=== PATIENT | female | born 1985 | race Caucasian/White ===

== ENCOUNTER 2020-04-22 12:48 | Outpatient (CLI) | payer BC, SELFPAY ==
[2020-04-22 14:26] LABS: HIV 1/2 Ab P24 Ag 9.67; Hepatitis B Surface Antigen Negative (Negative)
[2020-04-22 14:43] LABS: Hepatitis C Virus Antibody Negative (Negative)
[2020-04-22 17:15] LABS: HIV 1/2 Ab P24 Ag Result Reactive (Negative)
[2020-04-22 22:34] LABS: HIVc Retest 1 9.62; HIVc Retest 2 9.24
[2020-04-25 07:18] LABS: Rapid Plasma Reagin Non-Reactive (NonReactive)
[2020-04-25 16:02] LABS: HIV 1 2 Ag Ab 4th Gen w Rflxs Non-reactive (Non-reactive)
[2020-04-27 16:10] LABS: HSV 1 IgM Screen Negative (Negative); HSV 2 IgM Screen Negative (Negative)
== END 2020-04-22 12:49 | disposition home or self-care (01) ==
PROVIDERS: PCP Internal Medicine; Visit Provider Student in an Organized Health Care Education/Training Program
DX: Z11.3 Encounter for screening for infections with a predominantly sexual mode of transmission (principal)
CPT/HCPCS: 36415; 86592; 86695; 86696; 86703; 86803; 87340; 87389; G0432

== ENCOUNTER 2025-01-13 11:45 | Outpatient (CLI) | payer OTHER, SELFPAY ==
--- OUTSIDE RECORDS SUMMARY | 2023-08-02 03:47 | XMS_ITS | Continuity of Care Document ---
Author Organization [facility] Address [address] [address] Phone Care Team Providers Care Hide Splitter Name Role Phone Wade Simmons MD Unavailable Unavailable Allergies, Adverse Reactions, Alerts Substance Reaction Status Criticality PENICILLIN Active No Information Medications Medication Instructions Dosage Effective Dates (start - stop) Status Comments azelastine 137 mcg (0.1 %) nasal spray aerosol spray 2 spray by intranasal route 2 times every day in each nostril as needed for runny nose, nasal congestion - Active Procedures Procedure Date Perc Test Intradermal Test New (Level 4) OFFICE/OUTPATIENT VISIT Ap NICKER Registration Fee Advance Directives Directive Yes / No Effective Date File Name No Information Encounters Encounter Description Practice Location Reason(s) For Visit Diagnoses Date Provider Providers Copied on Encounter [facility], [address] [place] [address], [id number], tel:[phone] [facility] No Information Troy Olvera. [address], [place], [address], [place]. tel:[phone] Referring Provider: Wade Simmons, [address], [place], [address]. tel:[phone] New (Level 4) OFFICE/OUTPA TIENT VISIT [facility], [address] [place] [address], [id number], tel:[phone] [facility] [place] complaint[place] Diarrhea, unspecifiedAbnor mal weight lossDrug reaction, initial encounterAllergy status to penicillinOther allergic rhinitis 3 Troy Olvera. [address], [place], [address], [place]. tel:[phone] Referring Provider: Wade Simmons, [address], [place], [address]. tel:[phone] [facility], [address] [place] [address], [id number], tel:[phone] [facility] [place] Information [facility] Prov. . Referring Provider: Wade Simmons, [address], [place], [address]. tel:[phone] Family History Family Member Type Diagnosis Age At Onset Problem No family history of Thyroid disorder Father Problem rheumatoid arthritis Problem No family history of Immunod eficiency disorder Problem No family history of Eosinop hilic esophagitis Problem No family history of Lupus e rythematosus Payers Payer name Insurance type Covered green party ID Authoriza tion(s) [facility] [id number] Social History Type Description Quantity Date Captured Comments Alcohol Use Details Unknown Caffeine Use Details Unknown Tobacco Use Status No Information Smoking Status No Information Sex Female Chief Complaint And Reason For Visit No Information Reason For Referral Reason For Referral No Information History Of Present Illness Encounter Date Complaint History Of Prese nt Illness allergy symptoms RhinitisThe inga zaragoza has a history of perennial rhinitis with seasonal worsening in spring/fall. The symptoms include nasal congestion, rhinorrhea (ant), ear congestion (L>R), and occ sneezing w/ ocular pruritus and tearing. Currently, the patient is not on any medications. Previously they have tried Flonase PRN and levocetirizine (xyzal) 5 mg daily PRN. She worries about senior living side effects of nasal sprays affecting her bone health. The patient does have a history of sinus infections, about once per year requiring antibiotics..She has never had allergy testing in the past.She has a history of BPPV x1 year. She has used the Roge maneuver to improve these symptoms.She reports she is having issues with food. She says she has unintentionally lost 15% of her weight. She reports having to go to the bathroom within 15 to 30 minutes of eating due to diarrhea. She reports this has been going on for the last 2-3 months (though intermittently an issue over the last 5 years - more manageable). She tried dietary changes in the past (vegetarian or vegan about 2-3 years ago) which she found helpful for her sciatica, but felt it was nutritionally incomplete. She worries lettuce is a trigger for her symptoms, though they occur even without exposure to this food. She does not have associated hives, vomiting, or dyspnea.She reports no history of asthma and has never been on an inhaler.PMH: depression, BPPV, sciaticaPSH: tonsillectomyMedication Allergies:PCN - She reports having hives after taking amoxicillin about 20 years ago. She reports the hives started quickly after the first dose. She did not have any respiratory symptoms, though she states she felt lightheaded or weak and had to lay down in her bath tub. She did not seem emergency care. She has been avoiding PCN antibiotics since that time.FHRA - dad FH of asthma, rhinitis, SLE, thyroid disease, or immune deficiencySHTobacco: Former Smoker ( ppd x 11 years total; quit 2 months ago)Occupation: CosmetologistEnvironmental HistoryLives in a house (built 1979) w/ central air/forced heat, w/o evidence of mold/water damageFlooring in Bedroom: carpetPets: cats x 2DataI reviewed outside records available in the EMR Functional Status Date Functional Assessmen t No Information Instructions Date Instruction Additional Infor mindy - please follow up w ith your primary care doctor to discuss your unintentional weight loss Related to Abnormal weight loss - start Azelastine 2 sprays each nostril twice daily as needed- Please remember to point the nasal spray away from the nasal septum, up and outwards towards the top of the ears on both sides- if nose bleeding occurs, please hold the nasal spray for 2-3 days to allow for healing of the nasal tissue (you may use nasal saline gel or vaseline on a q-tip to help heal the tissue), then restart the nasal spray.- If nose bleeding recurs, please stop the nasal spray and contact our office to set up an appointment for further guidance Related to Other allergic rhinitis Assessments Type Assessment Date No Information Patient Care Teams Name Effective Dates (start - stop) Status Members No Information
--- OUTSIDE RECORDS SUMMARY | 2025-01-13 13:15 | XMS_ITS | Clinical Summary ---
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 Gender Identity Not on file Sexual Orientation Not on file Plan of Treatment Health Maintenance Due Date Last Done Comments Hepatitis C Virus (HCV) Screening 1987 TdaP Immunization 1987 Hepatitis B Immunization (2 of 3 - 3-dose series) 12/23/1996 11/25/1996 Pap Smear 10/14/2008 Human Papillomavirus (HPV) Immunization (1 - 3-dose SCDM series) 10/14/2014 Cervical Cancer Screening (CCS) 10/14/2017 HPV/Cotest 10/14/2017 Influenza Immunization (#1) 2024 SARS-COV-2 Immunization ( season) 2024 Respiratory Syncytial Virus (RSV) Immunization (Adult) (1 - 1-dose 75+ series) 10/14/2062 Meningococcal Immunization (ACWY) Aged Out No longer eligible based on patient's age to complete this topic Pneumococcal Immunization Combined Aged Out No longer eligible based on patient's age to complete this topic Rotavirus Immunization Aged Out No lo nger eligible based on patient's age to complete this topic Insurance [employer] on file
--- OUTSIDE RECORDS SUMMARY | 2025-01-13 13:15 | XMS_ITS | Clinical Summary ---
Author Organization [facility] Address [address] [place] [id number] Care Team Providers Care Wax Ball Knock Out Worker Name Role Phone Kelly Bell DO Primary Care Provider [phone] Allergies Active Allergy Reactions Criticality Noted Date Comments Amoxicillin Dizziness,Hives,Rash Low 05/30/1998 Penicillin G Unknown 09/28/2024 Medications azelastine (ASTELIN) 0.1 % nasal spray 05/16/2022 Active Active Problems Problem Noted Date Diagnosed Date Allergies 05/16/2022 Post traumatic stress disorder (PTSD) 02/11/2011 Major depression 02/11/2009 Encounters Date Type Department Care Team Description 12/09/2024 Telephone [facility] [address], [address] [place] [address] Kelly Bell DO Problem from Last 3 Months Immunizations Immunization Administration Dates Next Due HPV GARDASIL 9-VALENT 09/28/2024 Hepatitis B Pediatric 11/25/1996 Tdap (Adacel) 09/28/2024 Family History Medical History Relation Comments Arthritis Father Rheumatoid arthr its Hypertension Father Cancer Maternal Grandfather Prostate ca ncer Vision loss Maternal Grandmother Macular deg eneration Vision loss Paternal Grandmother Macular deg eneration Relation Status Comments Father Maternal Grandfather Maternal Grandmother Paternal Grandmother Social History Tobacco Use Types Packs/Day Years Used Date Smoking Tobacco: Former Cigarettes 0.3 10 Q uit: 06/29/2024 Passive Smoke Exposure: Current Smokeless Tobacco: Never Tobacco Cessation:Counseling Given: Yes Comments:I have not smoked since 06/29 and quit cannabis around mid August Alcohol Use Standard Drinks/Week Comments Not Currently 0 (1 standard drink = 0.6 oz pur e alcohol) I drink maybe once a year PHQ-2 Answer Date Recorded Patient Health Questionnaire-2 Score 0 09/28/2024 Comments No Sex and Gender Information Value Date Recorded Sex Assigned at Female 09/14/2024 12:43 PM CDT Legal Sex Female 5:43 PM CDT Gender Identity Not on file Sexual Orientation Not on file Last Filed Vital Signs Vital Sign Reading Time Taken Comments Blood Pressure 104/60 09/28/2024 8:57 AM CDT Pulse 84 09/28/2024 8:57 AM CDT Temperature 36.7 C (98 F) 09/28/2024 8:57 AM CDT Respiratory Rate 18 09/28/2024 8:57 AM CDT Oxygen Saturation 98% 09/28/2024 8:57 AM CDT Inhaled Oxygen Concentration - - Weight 68.7 kg (151 lb 6.4 oz) 09/28/2024 8:57 A M CDT Height 170.2 cm (5' 7) 09/28/2024 8:57 AM CDT Body Mass Index 23.71 09/28/2024 8:57 AM CDT Plan of Treatment Health Maintenance Due Date Last Done Comments Hepatitis B Vaccines (2 of 3 - 3-dose series) 12/23/1996 11/25/1996 COVID-19 Vaccine (2024-2 6 season) 2024 02/06/2021, 06/05/2020, 05/14/2020 HPV Vaccines (2 - 3-dose SCD M series) 10/26/2024 09/28/2024 Influenza Adult (#1) 2024 Annual Physical 09/28/2025 09/28/2024, 05/31/2022 Cervical Cancer Screening Pa p with HPV Testing (Age 30 to 64) Every 5 Years 06/29/2026 06/29/2021 Cervical Cancer Screening Pa p Smear (Age 30 to 64) Every 3 Years 08/27/2027 08/26/2024, 08/26/2024 Cervical Cancer Screening wi th HPV 08/27/2027 DTaP, Tdap and Td Vaccines ( 2 - Td or Tdap) 09/28/2034 09/28/2024 Hepatitis C Completed 05/31/2022 PHQ-2 (Physician [place]) Completed 09/28/2024 Hepatitis A Vaccines Aged Out No long er eligible based on patient's age to complete this topic Meningococcal B Vaccine Aged Out No l onger eligible based on patient's age to complete this topic Meningococcal Vaccine Aged Out No geremias vaughn eligible based on patient's age to complete this topic Pneumococcal Vaccine: Pediatrics (0 to 5 Years) and At-Risk Patients (6 to 49 Years) Aged Out No longer eligible b ased on patient's age to complete this topic RSV Immunizations Under 20 Months Aged Out No longer eligible b ased on patient's age to complete this topic Procedures Procedure Name Priority Date/Time Associated Diagnosis Comments HEPATITIS C ANTIBODY Routine 05/31/2022 9:21 AM CDT Annual physical exam Need for hepatitis C screening test OUTSIDE CYTOPATH CERV/VAG INTERPRET (PAP) 06/29/2021 from Last 3 Months or Most Recently Relevant to Health Maintenance Results * HEPATITIS C ANTIBODY (05/31/2022 9:21 AM CDT) HEPATITIS C AB NON-REACTI VE NON-REACT DWAYNE 05/31/2022 7:56 PM CDT [facility] Comment: ANTIBODIES TO HCV NOT DETECTED. DOES NOT EXCLUDE THE POSSIBILITY OF EXPOSURE TO HCV. 05/31/2022 9:21 AM CDT Kelly Bell DO LABORATORY Final Result [facility] [address] [place] [address], [id number] * PAP SMEAR WITH HPV (06/29/2021) 06/29/2021 [facility] Scanned SCANNING Final Resu lt from Last 3 Months or Most Recently Relevant to Health Maintenance Insurance [employer] Care Teams Wax Ball Knock Out Worker Relationship Specialty Start Date End Date Kelly Bell DO [address] [place] [address] PCP - General FAMILY PRACTICE 05/31/22
--- OUTSIDE RECORDS SUMMARY | 2025-01-13 13:16 | XMS_ITS | Clinical Summary ---
Author Organization [facility] Address [address] [place] [address] Care Team Providers Care Photo Finish Photographer Name Role Phone Giovana Farley NP Primary Care Provider [phone] Allergies Active Allergy Reactions Criticality Noted Date Comments Amoxicillin Medications DULoxetine DR (CYMBALTA) 30 mg capsule 08/24/2019 Active buPROPion XL (WELLBUTRIN XL) 300 mg 24 hr tablet 08/24/2019 Active Active Problems Problem Noted Date Diagnosed Date Encounter for contraceptive management 6 Surgical History Surgery Date Site/Laterality Comments [place] TONSILLECTOM[place] PRIMARY/SECONDARY <AGE 14 Tonsillectomy - (Added by TW Conv) [place] INCOMPLETE ANY TRIMESTER SURGICAL Surgical Treatment Of Spontaneous - (Added by FRANKIE Conv) EPIDURAL STEROID INJECTION 09/11/2018 - 10/11/2018 Medical History Medical History Date Comments Personal history of other di seases of the nervous system and sense organs History of migraine - (Added by TW Conv) Depression Migraines Family History Medical History Relation Name Comments Arthritis Father Relation Name Status Comments Father Social History Tobacco Use Types Packs/Day Years Used Date Smoking Tobacco: Former Cigarettes Q uit: 2018 Smokeless Tobacco: Never Comments Unknown Sex and Gender Information Value Date Recorded Sex Assigned at Not on file 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 Gender Identity Not on file Sexual Orientation Not on file Last Filed Vital Signs Vital Sign Reading Time Taken Comments Blood Pressure 93/66 05/30/2015 10:21 AM CDT Pulse - - Temperature - - Respiratory Rate - - Oxygen Saturation - - Inhaled Oxygen Concentration - - Weight 59.9 kg (132 lb) 09/07/2019 8:36 AM CDT Height 170.2 cm (5' 7) 09/07/2019 8:36 AM CDT Body Mass Index 20.67 09/07/2019 8:36 AM CDT Plan of Treatment Not on file Insurance [employer] [place] Care Teams Photo Finish Photographer Relationship Specialty Start Date End Date Giovana Farley NP PCP - General Internal Medicine 12/10/18
== END 2025-01-13 11:46 | disposition home or self-care (01) ==
LOC: ANHLAB 11:47
PROVIDERS: PCP Internal Medicine; Visit Provider Nurse Practitioner Family
DX: O09.299 Supervision of pregnancy with other poor reproductive or obstetric history, unspecified trimester (principal); Z3A.00 Weeks of gestation of pregnancy not specified
CPT/HCPCS: 36415; 84702

== ENCOUNTER 2025-01-15 12:29 | Outpatient (CLI) | payer OTHER, SELFPAY | END 2025-01-15 12:30 | disposition home or self-care (01) | LOC: ANHLAB 12:30 | PROVIDERS: PCP Internal Medicine; Visit Provider Nurse Practitioner Family | DX: O09.299 Supervision of pregnancy with other poor reproductive or obstetric history, unspecified trimester (principal); Z3A.00 Weeks of gestation of pregnancy not specified | CPT/HCPCS: 36415; 84702 ==